=== PATIENT | male | born 1990 | race African-American/Black ===

== ENCOUNTER 2018-01-05 17:44 | Emergency (ER) | payer BC ==
[2018-01-05] MEDS: predniSONE 10 MG TABLET PO (19:27)
[2018-01-05] MEDS: IPRATRPIUM/ALBUTEROL 0.5/2.5MG 3 ML NEBU. NEB (19:35)
== END 2018-01-05 20:17 | disposition home or self-care (01) ==
LOC: ER 17:44
DX: J20.9 Acute bronchitis, unspecified (principal); R03.0 Elevated blood-pressure reading, without diagnosis of hypertension; F17.200 Nicotine dependence, unspecified, uncomplicated
CPT/HCPCS: 71046; 94640; 99284; J7512; J7620

== ENCOUNTER → 2018-05-01 | Outpatient (CLI) | payer BC ==
[2018-01-05 19:00] VITALS: BP 184/89
[~2018-05-01] MED LIST: CYCL10TA2 PO; PRED50TA PO; VENTOLIN HFA18 GM INH
--- NOTE | 2018-05-02 10:46 | KCIC ---
MRI of the lumbar spine without contrast 05/01/2018 CLINICAL HISTORY: Low back pain which radiates down the right leg since late March of this year. TECHNIQUE: Unenhanced T1-weighted and T2-weighted sagittal and axial and inversion recovery sagittal images of the lumbar spine were obtained. FINDINGS: Minimal S-shaped curvature of the thoracolumbar spine is seen. Degenerative signal changes are seen involving the L4-5 and L5-S1 discs. Degenerative signal changes are seen within the marrow surrounding these discs. The conus medullaris is normal morphology, position and signal characteristics. The AP diameter of the central spinal canal is narrowed throughout the mid and lower lumbar spine likely due to congenitally short pedicles. The L1-2 and L2-3 disc spaces are within normal limits. At the L2-3 disc space there is a mild generalized disc bulge. Degenerative changes are seen involving the facet joints bilaterally. There is mild ligamentum flavum hypertrophy bilaterally. There is prominence of the posterior epidural fat. These findings when combined with the narrow AP diameter of the central spinal canal result in mild central spinal canal stenosis. No neural foraminal stenosis is seen. At the L4-5 disc space there is a mild generalized disc bulge. Superimposed on this disc bulge is a right paracentral focal disc herniation. This extrudes slightly superiorly and laterally to the right. It measures 8 mm in AP diameter. Degenerative changes are seen involving the facet joints bilaterally. There is mild ligamentum flavum hypertrophy bilaterally. There is prominence of the posterior epidural fat. These findings when combined with the narrow AP diameter of the central spinal canal result in moderate to severe right greater than left central spinal canal stenosis. The disc herniation appears to impinge to some degree upon the right L5 nerve root within the right lateral aspect central spinal canal. No neural foraminal stenosis is seen. At the L5-S1 disc space there is a mild generalized disc bulge. Superimposed on this disc bulge is a focal central disc protrusion. This measures 2 to 3 mm in AP diameter. Degenerative changes are seen involving the facet joints bilaterally. These findings do not result in significant central spinal canal or neural foraminal stenosis. IMPRESSION: The changes of degenerative disc disease are seen involving the mid and lower lumbar spine. These findings result in mild central spinal canal stenosis at L3-4 and moderate to severe right greater than left central spinal canal stenosis at L4-5. At the L4-5 disc space a right paracentral focal disc herniation is seen which appears to impinge to some degree upon the right L5 nerve root as outlined above. No neural foraminal stenosis is seen. Electronically signed by: Ankit Velez MD (05/02/2018 10:42 AM) [id number]
== END | disposition home or self-care (01) ==
LOC: KCIC MRI 16:07
DX: M51.36 Other intervertebral disc degeneration, lumbar region (principal); M48.061 Spinal stenosis, lumbar region without neurogenic claudication; M51.26 Other intervertebral disc displacement, lumbar region
CPT/HCPCS: 72148